=== PATIENT | male | born 1985 | race Two or more races ===

== ENCOUNTER 2020-08-03 16:43 | Emergency (ER) | payer OTHER ==
[~2020-08-03] VITALS: Ht 175.3 cm; Wt 65.8 kg
[2020-08-03 19:00] LABS: Basophils # (auto) 0 10 ^3/uL (0-0.2); Basophils % (auto) 0.4 % (0.0-2.0); Eosinophils # (auto) 0.1 10 ^3/uL (0-0.8); Eosinophils % (auto) 0.8 % (0.0-7.0); Hematocrit 40.9 % (41.0-53.0); Hemoglobin 13.9 g/dL (13.5-17.5); Lymphocytes # (auto) 1.6 10 ^3/uL (0.4-5.4); Lymphocytes % (auto) 13.5 % (10.0-50.0); Mean Corpuscular Hemoglobin 29.8 pg (28.0-32.0); Mean Corpuscular Hgb Conc. 34.1 g/dL (32.0-36.0); Mean Corpuscular Volume 87.4 fL (80.0-100.0); Monocytes # (auto) 0.9 10 ^3/uL (0-1.3); Monocytes % (auto) 8.1 % (0.0-12.0); Neutrophils # (auto) 9.1 10 ^3/uL (1.6-8.6); Neutrophils % (auto) 77.2 % (37.0-80.0); Platelet Count (auto) 243 10^3/uL (140-450); Red Blood Cells 4.67 10^6/uL (4.5-5.90); White Blood Cell 11.8 10^3/uL (4.4-10.8)
[2020-08-03 19:01] LABS: Albumin 4.3 g/dL (3.4-5.0); BUN/Creatinine Ratio 11.5; Potassium 4.4 mmol/L (3.5-5.1)
[2020-08-03 19:04] LABS: Bilirubin, Total 0.7 mg/dL (0.2-1.0); Total Protein 7.3 g/dL (6.4-8.2)
[2020-08-03 19:05] LABS: INR 1.03 (0.9-1.15); Partial Thromboplastin Time 25.4 sec (23.0-31.2)
[2020-08-03] MEDS ORDERED: CLINDAMYCIN 600MG IV 50 ML IV ONE (19:15)
[2020-08-03] MEDS ORDERED: MORPHINE SULF INJ 2 MG/ML SYRINGE 1ML IV ONE (19:30)
[2020-08-03] MEDS ORDERED: ONDANSETRON HCL 4 MG/2 ML VIAL IV ONE (19:30)
[2020-08-03 21:31] VITALS: BP 121/73
== END 2020-08-03 19:34 | disposition short-term general hospital (02) ==
LOC: EDBD 16:43 → ER 16:43
DX: K12.2 Cellulitis and abscess of mouth (principal); R04.0 Epistaxis; Z20.822 Contact with and (suspected) exposure to COVID-19
CPT/HCPCS: 36415; 70486; 80053; 83605; 85025; 85610; 85730; 87040; 87426; 96374; 96375; 99285; J2270; J2405; J3490